=== PATIENT | female | born 1990 | race African-American/Black ===

== ENCOUNTER 2018-02-06 11:14 | Emergency (ER) | payer SELFPAY ==
[2018-02-06 11:32] VITALS: BP 121/64
== END 2018-02-06 17:20 | disposition left against medical advice (07) ==
LOC: ED 11:14
DX: J11.1 Influenza due to unidentified influenza virus with other respiratory manifestations (principal); Z53.21 Procedure and treatment not carried out due to patient leaving prior to being seen by health care provider